=== PATIENT | female | born 1985 | race Caucasian/White ===

== ENCOUNTER → 2017-12-14 16:16 | Observation (INO) ==
[2017-12-14 12:49] LABS: Alanine Aminotransferase 7 Units/L (7-52); Aspartate Amino Transferase 14 Units/L (13-39); BUN/Creatinine Ratio 15 (6-26); Blood Urea Nitrogen 8 mg/dL (6-20); Lactate Dehydrogenase 141 Units/L (140-271); Uric Acid 3.3 mg/dL (2.3-7.6); eGFR For Non-African Americans > 60 (> 60)
[2017-12-14 12:55] LABS: Protein/Creatinine Ratio,Urine 0.13 mg/mg (0.00-0.20)
[2017-12-14 12:56] LABS: Amphetamine Screen,Urine Negative ng/mL (Cutoff=1000); Barbiturate Screen,Urine Negative ng/mL (Cutoff=200); Basophils % 0.3 %; Benzodiazepines Screen,Urine Negative ng/mL (Cutoff=200); Cannabinoid Screen,Urine Negative ng/mL (Cutoff = 50); Cocaine Screen,Urine Negative ng/mL (Cutoff= 300); Eosinophils # 0.1 K/mcL (0.0-0.6); Eosinophils % 0.7 %; Hematocrit 36.6 % (35.3-44.9); Hemoglobin 12.1 g/dL (11.5-15.4); Immature Granulocytes % 0.8 % (0-4); Lymphocytes # 1.7 K/mcL (0.6-4.6); Lymphocytes % 16.5 %; Mean Corpuscular HGB Conc 33.1 g/dL (31.6-35.5); Mean Corpuscular Hemoglobin 28.6 pg (28.0-33.3); Mean Corpuscular Volume 86.5 fL (83.0-100.0); Mean Platelet Volume 9.8 fL (9.4-12.4); Monocytes # 0.5 K/mcL (0.0-1.3); Monocytes % 4.9 %; Neutrophils # 7.8 K/mcL (1.6-8.9); Opiate Screen,Urine Negative ng/mL (Cutoff=300); Phencyclidine Screen,Urine Negative ng/mL (Cutoff=25); Platelet Count 270 K/mcL (140-400); Red Blood Count 4.23 M/mcL (3.82-4.97); Red Cell Distribution Width 12.8 % (11.5-14.5); Segmented Neutrophils % 76.8 %
--- NOTE | 2017-12-14 13:26 | OB/GYN Progress Note ---
Date of Encounter: 12/14/17 Time of Encounter: 13:20 - Assessment and Plan (1) 37 weeks gestation of Current Visit: Yes Status: Acute Admit to observation to rule out preeclampsia Continuous monitoring (2) headache in third trimester Current Visit: Yes Status: Acute Serial blood pressures Obtain PIH labs Nonstress test Pharmacological treatment of headache with Phenergan and Fioricet (3) NST (non-stress test) reactive Current Visit: No Status: Acute FHR 135 bpm, moderate variability, +15 x 15 accelerations, no decelerations. Subjective - Subjective Principal diagnosis: Visual disturbance in Interval history: Josh is a 32-year-old at 37 weeks and 3 days who presents today with complaint of visual disturbance not being able to see well out of one eye. She denies any high blood pressure during this . She began noticing visual disturbance this morning at 9 AM she then vomited twice, and headache started around 10:00. She took Tylenol at 10:15 with no relief of symptoms. Today she reports positive movement denies any vaginal bleeding or fluid leakage and is not feeling any contractions. Antepartum ROS: new complaints, movement normal, no loss of fluid, no vaginal bleeding, no contractions Objective - Vital Signs Vital Signs: Intake and Output 12/13/17 12/14/17 12/14/17 23:59 07:59 15:59 Other: Weight 106.7 kg Patient Weight 12/14/17 23:59 Weight 106.7 kg - Exam FHR: auscultation normal, category 1 FHR comments: FHR 135 bpm, moderate variability, +15 x 15 accelerations, no decelerations. Irregular contractions noted on monitor Abdomen: Present: normal appearance, soft, gravid - Labs Labs: Abnormal lab results Creatinine 0.53 mg/dL (0.60-1.20) L 12/14/17 12:11
--- NOTE | 2017-12-14 16:12 | Discharge Summary ---
Date of Encounter: 12/14/17 Time of Encounter: 16:21 - Discharge Diagnosis (1) 37 weeks gestation of Priority: Primary Status: Acute Comments: Admitted for observation for headache during Irregular contractions noted. Reactive NST. (2) headache in third trimester Priority: Secondary Status: Acute Comments: Headache pain improved after Fioricet and Phenergan. Sent home with prescription for Fioricet and Phenergan if needed for headache pain (3) NST (non-stress test) reactive Priority: Secondary Status: Acute Comments: FHR 130 bpm, moderate variability +15 x 15 accelerations, no decelerations. - Discharge Medications Prescriptions: Acetaminophen/Butalbital/Caffe [Fioricet] 1 each PO Q6HR #10 tablet Promethazine [Phenergan] 12.5 mg PO Q6HR #10 tablet Home Medications: Nexium 1 tab PO DAILY 10/11/15 [History] Caplet 1 tab PO DAILY 10/11/15 [History] Acetaminophen/Butalbital/Caffe [Fioricet] 1 each PO Q6HR #10 tablet 12/14/17 [Rx] Famotidine [Pepcid] 1 tab PO DAILY 12/14/17 [History] Promethazine [Phenergan] 12.5 mg PO Q6HR #10 tablet 12/14/17 [Rx] Allergies/Adverse Reactions: Allergy/AdvReac Type Severity Reaction Status Date / Time No Known Allergies Allergy Verified 12/14/17 12:12 Data Procedures and tests throughout hospitalization: Laboratory Tests 12/14/17 12/14/17 12/14/17 12:11 12:11 12:11 WBC 10.2 RBC 4.23 Hgb 12.1 Hct 36.6 MCV 86.5 MCH 28.6 MCHC 33.1 RDW 12.8 Plt Count 270 MPV 9.8 Immature Gran % 0.8 Seg Neutrophils % 76.8 Lymphocytes % 16.5 Monocytes % 4.9 Eosinophils % 0.7 Basophils % 0.3 Neutrophils # 7.8 Lymphocytes # 1.7 Monocytes # 0.5 Eosinophils # 0.1 Basophils # 0.0 BUN Creatinine Est GFR ( Amer) Est GFR (Non-Af Amer) BUN/Creatinine Ratio Uric Acid AST ALT Lactate Dehydrogenase Urine Creatinine 30 Protein/Creatinin Ratio 0.13 Urine Total Protein 4 Urine Opiates Screen Negative Ur Barbiturates Screen Negative Ur Phencyclidine Scrn Negative Ur Amphetamines Screen Negative U Benzodiazepines Scrn Negative Urine Cocaine Screen Negative U Marijuana (THC) Screen Negative Ur Drug Screen Interp See Below Hep Bs Antigen 12/14/17 12/14/17 12:11 12:17 WBC RBC Hgb Hct MCV MCH MCHC RDW Plt Count MPV Immature Gran % Seg Neutrophils % Lymphocytes % Monocytes % Eosinophils % Basophils % Neutrophils # Lymphocytes # Monocytes # Eosinophils # Basophils # BUN 8 Creatinine 0.53 L Est GFR ( Amer) > 60 Est GFR (Non-Af Amer) > 60 BUN/Creatinine Ratio 15 Uric Acid 3.3 AST 14 ALT 7 Lactate Dehydrogenase 141 Urine Creatinine Protein/Creatinin Ratio Urine Total Protein Urine Opiates Screen Ur Barbiturates Screen Ur Phencyclidine Scrn Ur Amphetamines Screen U Benzodiazepines Scrn Urine Cocaine Screen U Marijuana (THC) Screen Ur Drug Screen Interp Hep Bs Antigen Nonreactive Labs on day of discharge: Labs from last 24 hours 12/14/17 12/14/17 12/14/17 12:17 12:11 12:11 WBC RBC Hgb Hct MCV MCH MCHC RDW Plt Count MPV Immature Gran % Seg Neutrophils % Lymphocytes % Monocytes % Eosinophils % Basophils % Neutrophils # Lymphocytes # Monocytes # Eosinophils # Basophils # BUN 8 Creatinine 0.53 L Est GFR ( Amer) > 60 Est GFR (Non-Af Amer) > 60 BUN/Creatinine Ratio 15 Uric Acid 3.3 AST 14 ALT 7 Lactate Dehydrogenase 141 Urine Creatinine 30 Protein/Creatinin Ratio 0.13 Urine Total Protein 4 Urine Opiates Screen Ur Barbiturates Screen Ur Phencyclidine Scrn Ur Amphetamines Screen U Benzodiazepines Scrn Urine Cocaine Screen U Marijuana (THC) Screen Ur Drug Screen Interp Hep Bs Antigen Nonreactive 12/14/17 12/14/17 12:11 12:11 WBC 10.2 RBC 4.23 Hgb 12.1 Hct 36.6 MCV 86.5 MCH 28.6 MCHC 33.1 RDW 12.8 Plt Count 270 MPV 9.8 Immature Gran % 0.8 Seg Neutrophils % 76.8 Lymphocytes % 16.5 Monocytes % 4.9 Eosinophils % 0.7 Basophils % 0.3 Neutrophils # 7.8 Lymphocytes # 1.7 Monocytes # 0.5 Eosinophils # 0.1 Basophils # 0.0 BUN Creatinine Est GFR ( Amer) Est GFR (Non-Af Amer) BUN/Creatinine Ratio Uric Acid AST ALT Lactate Dehydrogenase Urine Creatinine Protein/Creatinin Ratio Urine Total Protein Urine Opiates Screen Negative Ur Barbiturates Screen Negative Ur Phencyclidine Scrn Negative Ur Amphetamines Screen Negative U Benzodiazepines Scrn Negative Urine Cocaine Screen Negative U Marijuana (THC) Screen Negative Ur Drug Screen Interp See Below Hep Bs Antigen Date of admission: 12/14/17 11:52 Discharging clinician: Christel Mi Anticipated date of discharge: 12/14/17 - Patient Status Disposition: Home, Self-Care Condition: Good Functional capacity at discharge: independent ambulation Overall status at discharge: patient is progressing back to baseline - Discharge Instructions Follow Up With: Swathi Plasencia MD [Partnered Physician] - - Diet and Activity Activity: resume usual activities as tolerated Diet: regular diet Hospital 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 PIH evaluation was completed. All labs returned normal, blood pressures within normal limits. Fioricet and Phenergan given for headache complaints with acceptable relief. Patient sent home in satisfactory condition with prescription for Fioricet and Phenergan if needed for headache pain. Time Attestation: Total time spent providing and/or coordinating discharge services: Time Spent: Less than 30 minutes Exam - Constitutional General appearance IM: A&O X 3, pleasant, no acute distress, answers questions appropriately - Cardiovascular Cardiovascular exam IM: Present: RRR, +S1, +S2 - Neurological Exam Neurological exam: alert, normal gait, oriented X3, reflexes normal - VTE Reasons for not Prescribing Prophylaxis: Treatment not Indicated - Low risk for VTE
[~2017-12-14 16:16] MED LIST: *HR* Promethazine 25 MG/ML VIAL IVP ONE; Acetaminophen/Butalbital/CaffeineTABLET PO ONE
== END | disposition home or self-care (01) ==
LOC: 1NENULAB
PROVIDERS: ADMIT Registered Nurse; ATTEND Registered Nurse

== ENCOUNTER 2017-12-27 05:56 | Inpatient (IN) ==
[2017-12-27] MEDS ORDERED: Epidural Premix (fent/bupiv) 110 ML EP ONE (05:59)
[2017-12-27] MEDS ORDERED: Lidocaine -MPF 2% 5 ML VIAL ONE ×2 (06:00→17:59)
[2017-12-27] MEDS ORDERED: EPHEDrine 50 MG/ML VIAL IVP PRN (06:05)
[2017-12-27] MEDS ORDERED: Ondansetron 4 MG/2 ML VIAL IVP PRN (06:12)
[2017-12-27] MEDS ORDERED: Naloxone 0.4 MG/ML INJ IVP PRN (06:12)
[2017-12-27] MEDS ORDERED: *HR* Nalbuphine 10 MG/ML AMPUL IVP PRN (06:12)
[2017-12-27] MEDS ORDERED: Lidocaine 1% 20 ML MDV ID PRN (06:12)
[2017-12-27] MEDS ORDERED: Famotidine 20 MG/2 ML VIAL IVP PRN (06:12)
[2017-12-27] MEDS ORDERED: Metoclopramide 10 MG/2 ML VIAL IVP PRN (06:12)
[2017-12-27] MEDS ORDERED: Epidural Premix (fent/bupiv) 110 ML EP SCH (06:15)
[2017-12-27] MEDS ORDERED: miSOPROStol 100 MCG TABLET PO PRN (06:26)
[2017-12-27] MEDS ORDERED: Penicillin G Potassium 5,000,000 UNIT in 0.9 % Sodium Chloride Mini Bag 100 ML IVPB ONE (06:29)
--- NOTE | 2017-12-27 06:29 | Anesthesia Evaluation PreOp ---
Date of Encounter: 12/27/17 Time of Encounter: 06:22 - Past History Planned Operation: vaginal del, Cardiac History: Denies any Significant Hx Pulmonary History: Denies Any Significant HX AIR BRAKE RIGGER History: Denies Any Significant HX Other Medical History: GERD, Other (previous stat surgery d/t uterine prolapse/inversion (1 liter loss at that time)) Anesthesia History: No Prior Anesthetic Complications, Past Anesthesia Alcohol Use: none Drug use: none Medications and Allergies Nexium 1 tab PO DAILY 10/11/15 [History] Caplet 1 tab PO DAILY 10/11/15 [History] Acetaminophen/Butalbital/Caffe [Fioricet] 1 each PO Q6HR #10 tablet 12/14/17 [Rx] Famotidine [Pepcid] 1 tab PO DAILY 12/14/17 [History] Promethazine [Phenergan] 12.5 mg PO Q6HR #10 tablet 12/14/17 [Rx] Allergy/AdvReac Type Severity Reaction Status Date / Time No Known Allergies Allergy Verified 12/27/17 06:13 Anesthesia Exam - HEENT Pupil (Motor): Pupils equal Mallampati: III Teeth: Normal Oral Opening: Greater than 3 - AIR BRAKE RIGGER LOC: Oriented AIR BRAKE RIGGER Motor: Normal RUE, Normal LUE, Normal RLE, Normal LLE, Normal Face AIR BRAKE RIGGER Sensory: Normal: RUE, LUE, RLE, LLE, Face - Cardiac Rhythm: Regular Murmur: None - Pulmonary Breath Sounds: bilateral Clear Respiratory Effort: Symmetrical Anesthesia Assess/Plan ASA Score: 2 Level of consciousness: Cooperative, Oriented Anesthetic Plan: General, Spinal, Epidural Monitoring Plan: Standard Monitors Recovery Plan: PACU
[2017-12-27 06:39] LABS: Basophils % 0.3 %; Eosinophils # 0.1 K/mcL (0.0-0.6); Eosinophils % 0.9 %; Hematocrit 36.9 % (35.3-44.9); Hemoglobin 11.9 g/dL (11.5-15.4); Immature Granulocytes % 0.7 % (0-4); Lymphocytes # 2.9 K/mcL (0.6-4.6); Lymphocytes % 26.9 %; Mean Corpuscular HGB Conc 32.2 g/dL (31.6-35.5); Mean Corpuscular Hemoglobin 27.9 pg (28.0-33.3); Mean Corpuscular Volume 86.6 fL (83.0-100.0); Mean Platelet Volume 9.9 fL (9.4-12.4); Monocytes # 0.7 K/mcL (0.0-1.3); Monocytes % 6.5 %; Neutrophils # 7.1 K/mcL (1.6-8.9); Platelet Count 285 K/mcL (140-400); Red Blood Count 4.26 M/mcL (3.82-4.97); Red Cell Distribution Width 13.1 % (11.5-14.5); Segmented Neutrophils % 64.7 %
[2017-12-27] MEDS ORDERED: Famotidine 20 MG/2 ML VIAL IVP ONE (06:52)
[2017-12-27] MEDS ORDERED: D5% in 0.45% NACL 1,000 ML IVC ONE (06:57)
--- NOTE | 2017-12-27 08:38 | History & Physical Report ---
Date of Encounter: 12/27/17 Time of Encounter: 08:31 24 Hour HP Update - Instructions Instructions: If the History and Physical is less than 30 days old and was completed prior to A.M. admission and or procedure and has NOT been updated on calendar day of procedure please complete this update prior to performing procedure. - Update Patient reports changes in Medical Condition: No Changes in examination, assessment, or condition: Yes Changes in Medication: No Preop tests/diagnostics Reviewed: Yes Surgery Remains Indicated: Yes Consent for Planned Operative Procedure(s) Verified: Yes Review of Patient reveals the following changes:: The patient was spontaneous emesis on arrival after Pepcid - Pre-Operative Checklist Preoperative Checklist Indicated: No Is VTE Prophylaxis Indicated?: NO
[2017-12-27] MEDS ORDERED: Ringers Solution, Lactated 1,000 ML ONE ×2 (08:54→19:17)
--- NOTE | 2017-12-27 09:10 | Anesthesia Procedures ---
Date of Encounter: 12/27/17 Time of Encounter: 08:23 Procedures: Anesthesia - Epidural/Spinal Patient ID/Chart reviewed: Yes Patient examined: Yes OB Eval: Gestational age: term OB Eval: : 2 OB Eval: Hx Para: 1 OB Eval: Contractions: Non-stressed pattern Consent Obtained: Yes Supplemental Oxygen: None/Room Air Site Prep: Aseptic Technique, Sterile prep and drape, 0.5% Chlorhexidine/Alcohol Patient position: upright Local Anesthetic: Lidocaine 1% Amount of Local Anesthetic used: 2 Touhy Needle Gauge: 18 Touhy Needle Depth (cm): 7 Catheter Depth at Skin (cm): 11 Test Dose (1.5% Lido + Epi): Volume given (mls): 3 Test Dose Result: Negative Loading Dose: Other: 8ml from solution Loading Dose Administered: Thru Catheter Infusion Med: 0.125% Bupivacaine w/ 2 mcg/ml Fentanyl Infusion Rate (mls/hr): 5 (demand of 7 Q 10min, decision for lower basal d/t pt not in acute phase labor ) Catheter Secured in Place: Tegaderm, Tape Interspace Used: L3-L4 Loss of Resistance (THERESA): Yes (saline) Blood: No CSF: No Paresthesia: No Procedure: vss though out procedure, FHR stable per RN's
[2017-12-27] MEDS: Penicillin G Potassium 2,500,000 UNIT in 0.9 % Sodium Chloride 100 ML IVPB SCH ×3 (11:33→19:26)
[2017-12-27] MEDS ORDERED: Oxytocin 20 units/ LR 1000 mL 20 UNIT/1,000 ML BAG IVC SCH (12:00)
[2017-12-27] MEDS ORDERED: Oxytocin 20 units/ LR 1000 mL 20 UNIT/1,000 ML BAG IVC ONE (12:12)
[2017-12-27] MEDS ORDERED: Bupivacaine-MPF 0.25% 10 ML VIAL ONE ×3 (14:03→17:59)
[2017-12-27] MEDS ORDERED: *HR* FentaNYL (PF) 100 MCG/2 ML VIAL ONE ×2 (14:03→22:10)
--- NOTE | 2017-12-27 15:02 | Anesthesia Progress Note ---
Date of Encounter: 12/27/17 Time of Encounter: 14:05 Anesthesia Note - Note Note: 12/27/17 15:00 called to LDR 12 for c/o pain with contractions, mostly on left side and very low. States experienced the same type of pain with previous epidural/delivery.States has push bolus button without any relief. Rate on epidural at 5ml per hour. Dosed epidural with 8ml 0.25% bupivacaine and 100 mcg fentanyl in 3 divided doses. VSS and FHTs stable throughout. Increased rate on epidural infusion to 14ml/hour.
--- NOTE | 2017-12-27 16:07 | OB Labor Progress Note ---
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 She is feeling better. - Vital Signs Vital Signs: Afebrile, vital signs stable - Cervix Cervix: 5/100/-1 with forebag, vertex - Heart Tones Heart Tones: 130s baseline, CAT 1 - [place]: Unable to monitor, patient on left side on 4 milliunits of Pitocin - Interventions Interventions: 39 week IUP for induction of labor was suspected macrosomia. - Plan Plan: Amniotomy with large amount of clear fluid seen. IUPC placed. Continue i nduction of labor
--- NOTE | 2017-12-27 18:33 | Anesthesia Progress Note ---
Date of Encounter: 12/27/17 Time of Encounter: 16:27 Anesthesia Note - Note Note: 12/27/17 18:32 called to LDR 12 for continued pain to lower left abdomen and hip. Was relieved some by previous redose. Epidural has not migrated. Dosed with 10ml 0.25% bupivacaine in 3 doses. VSS and FHTs stable throughout.
--- NOTE | 2017-12-27 19:17 | Anesthesia Procedures ---
Date of Encounter: 12/27/17 Time of Encounter: 18:41 Procedures: Anesthesia - Epidural/Spinal Patient ID/Chart reviewed: Yes Patient examined: Yes OB Eval: Gestational age: term OB Eval: : 2 OB Eval: Hx Para: 1 OB Eval: Contractions: Non-stressed pattern Consent Obtained: Yes Supplemental Oxygen: None/Room Air Site Prep: Aseptic Technique, Sterile prep and drape, 0.5% Chlorhexidine/Alcohol Patient position: upright Local Anesthetic: Lidocaine 1% Amount of Local Anesthetic used: 2 Touhy Needle Gauge: 18 Touhy Needle Depth (cm): 7 Catheter Depth at Skin (cm): 11 Test Dose (1.5% Lido + Epi): Volume given (mls): 4 Test Dose Result: Negative Loading Dose: Other: 0 Infusion Med: 0.125% Bupivacaine w/ 2 mcg/ml Fentanyl Infusion Rate (mls/hr): [address]: Tegaderm, Tape Interspace Used: L3-L4 Loss of Resistance (THERESA): Yes (saline) Blood: No CSF: Yes (CSE, d/t HOT SPOT same as last time with minimal relief. ) Paresthesia: No Procedure: vss though out procedure, FHR stable per RN's. one interspace above attempted unsuccessful moved skin and moved up 2 interspaces from original site THERESA as listed 27g pencil point with 0.6ml isobaric 0.25% bup. and threaded cath. then neg test dose. then placed epidural GTT. at 15ml. aseptic though out.
[2017-12-27] MEDS ORDERED: Lidocaine/EPI 1:200k 2% PF 20 ML VIAL ONE (22:10)
--- NOTE | 2017-12-27 22:22 | Anesthesia Progress Note ---
Date of Encounter: 12/27/17 Time of Encounter: 22:16 Anesthesia Note - Note Note: 12/27/17 22:21 bolus with 5ml lido 2% with epi and 100mcg Fentanyl. VSS, FHR per RN's
--- NOTE | 2017-12-27 22:23 | OB Labor Progress Note ---
Date of Encounter: 12/27/17 Time of Encounter: 22:21 Labor Progress Note - Subjective Subjective: The patient has had some relief from hotspots with boluses per anesthesia. She is currently shaking after the epidural. She feels a lot of rectal pressure - Vital Signs Vital Signs: Afebrile, vital signs stable - Cervix Cervix: Rim, 0 station - Heart Tones Heart Tones: 150s baseline, CAT 2 with variable decells. - [place]: Contractions every 2-4 minutes, 30-50 mmHg on Pitocin - Interventions Interventions: 39 week IUP for induction of labor with suspected macrosomia. Patient has been at 9 cm with a slight increase in descensus for over an hour. - Plan Plan: Continue induction with close observation for tolerance and adequacy of contractions and cervical change.
[2017-12-27] MEDS ORDERED: Scopolamine Patch 1.5 MG PATCH.TD72 TD ONE (22:52)
--- NOTE | 2017-12-28 01:03 | OB/GYN Procedure Note ---
Delivery - Delivery Date: 12/28/17 Provider: Swathi Plasencia Intrapartum events: none Delivery induction: misoprostol Delivery augmentation: rupture of membranes, pitocin Delivery monitor: external FHT, external uterine, internal uterine Anesthesia: epidural Quantitated Blood Loss: 100 - (s) Infant A Infant Delivery Date: 12/28/17 Delivery Time: 00:37 Presentation: vertex Position: JAGJIT Route of delivery: Gender: Male Viability: Viable Pounds: 9 Ounces: 0 Weight Gram: 4.08 kg at 1 minute: 8 at 5 mins: 9 Shoulder Dystocia: not encountered Placenta: spontaneous Cord: 3 umbilical vessels - Repair Episiotomy: none Laceration Description: None - Complications Delivery complications: none Delivery comments: The patient was complete and pushing with epidural anesthesia with a spontaneous vaginal delivery in the JAGJIT position of a vigorous male infant weighing 9 lbs.0 oz. with Apgars of 8 at 1 minute and 9 at 5 minutes. Infant was placed on the maternal abdomen. The cord was clamped and cut after pulsations ceased. Cord blood obtained. The placenta was delivered spontaneous and intact. There were no lacerations on visual inspection. Estimated blood loss 100 mL, complications none. - Disposition Mom disposition: stable in LDR disposition: stable in LDR
[2017-12-28] MEDS ORDERED: Oxytocin 20 units/ LR 1000 mL 20 UNIT/1,000 ML BAG IVC SCH (03:02)
[2017-12-28] MEDS ORDERED: Acetaminophen 325 MG TABLET PO PRN (03:02)
[2017-12-28] MEDS: Prenatal Vit/FA 1 EACH TABLET PO SCH (10:05)
[2017-12-28] MEDS: Ibuprofen 600 MG TABLET PO SCH ×3 (10:06→21:59)
[2017-12-29 08:27] VITALS: BP 114/76
[2017-12-29] MEDS: Ibuprofen 600 MG TABLET PO SCH (08:41)
[2017-12-29] MEDS: Prenatal Vit/FA 1 EACH TABLET PO SCH (08:41)
--- NOTE | 2017-12-29 09:40 | Discharge Summary ---
Date of Encounter: 12/29/17 Time of Encounter: 09:38 - Discharge Diagnosis (1) Breast feeding status of mother Priority: Secondary Status: Acute Comments: support prn (2) Status post vaginal delivery Priority: Primary Status: Acute Comments: Continue routine care discharge home today follow up with Dr. Plasencia in 4-6 weeks - Discharge Medications Home Medications: Ibuprofen [Motrin] 600 mg PO Q6HR tablet 12/29/17 [Rx] Vit/FA 1 each PO DAILY tablet 12/29/17 [Rx] Allergies/Adverse Reactions: Allergy/AdvReac Type Severity Reaction Status Date / Time No Known Allergies Allergy Verified 12/27/17 06:13 Data Procedures and tests throughout hospitalization: Laboratory Tests 12/27/17 06:12 WBC 10.9 RBC 4.26 Hgb 11.9 Hct 36.9 MCV 86.6 MCH 27.9 L MCHC 32.2 RDW 13.1 Plt Count 285 MPV 9.9 Immature Gran % 0.7 Seg Neutrophils % 64.7 Lymphocytes % 26.9 Monocytes % 6.5 Eosinophils % 0.9 Basophils % 0.3 Neutrophils # 7.1 Lymphocytes # 2.9 Monocytes # 0.7 Eosinophils # 0.1 Basophils # 0.0 Date of admission: 12/27/17 05:56 Primary care physician: Arley Staley MD Consults: 12/28/17 03:02 Consult to Chair [CONS] Routine Comment: Vaginal delivery, consult needed Discharging clinician: Ellie Torres Anticipated date of discharge: 12/29/17 - Patient Status Disposition: Home, Self-Care Condition: Good Functional capacity at discharge: independent ambulation - Discharge Instructions Follow Up With: Arley Staley MD [Primary Care Provider] - Swathi Plasencia MD [Partnered Physician] - - Diet and Activity Activity: increase activity as tolerated Diet: regular diet Hospital Course Reason for admission: induction of labor Delivery: Episiotomy: none Laceration: none Other procedures: none complications: none baby: male (breast feeding) Time Attestation: Total time spent providing and/or coordinating discharge services: Time Spent: Less than 30 minutes Exam - Constitutional Vitals: Temp Pulse Resp BP Pulse Ox 97.4 F L 73 16 114/76 97 12/29/17 08:25 12/29/17 08:25 12/29/17 08:25 12/29/17 08:25 12/29/17 08:25 General appearance IM: A&O X 3, pleasant, answers questions appropriately - Respiratory Respiratory exam: Present: CTAB - Cardiovascular Cardiovascular exam IM: Present: RRR, +S1, +S2 - GI/Abdominal GI/Abdominal exam IM: normal bowel sounds - Uterine Tone: Firm Uterus Position: At Umbilicus, Midline - Extremities Exam Extremities exam IM: Present: full ROM, normal capillary refill, normal inspection - Neurological Exam Neurological exam: alert, oriented X3, reflexes normal - Other Additional findings: light lochia without blood clots
== END 2017-12-29 11:52 | disposition home or self-care (01) | DRG 807 ==
LOC: 1NENULAB 05:56 → 1NENUOBS 12-28 03:01
PROVIDERS: ADMIT Obstetrics & Gynecology; ATTEND Obstetrics & Gynecology

== ENCOUNTER 2021-05-02 23:00 | Inpatient (IN) ==
[~2021-05-02 23:00] MED LIST changes: +*HR* Nalbuphine 10 MG/ML AMPUL IV PRN; -*HR* Promethazine 25 MG/ML VIAL IVP ONE; -Acetaminophen/Butalbital/CaffeineTABLET PO ONE; +Azithromycin 500 MG in 0.9 % Sodium Chloride 250 ML IVPB PRN; +Famotidine 20 MG/2 ML VIAL IVP PRN; +Lidocaine 1% 20 ML MDV INFILT PRN; +Metoclopramide 10 MG/2 ML VIAL IVP PRN; +Naloxone 0.4 MG/ML INJ IVP PRN; +Ringers Solution, Lactated 1,000 ML IVC SCH
[2021-05-03 00:27] LABS: Basophils # 0.1 K/mcL (0.0-0.2); Basophils % 0.4 %; Eosinophils # 0.1 K/mcL (0.0-0.6); Hematocrit 35.2 % (35.3-44.9); Immature Granulocytes % 0.7 % (0-4); Lymphocytes # 2.5 K/mcL (0.6-4.6); Lymphocytes % 21.9 %; Mean Corpuscular HGB Conc 34.1 g/dL (31.6-35.5); Mean Corpuscular Hemoglobin 30.2 pg (28.0-33.3); Mean Corpuscular Volume 88.7 fL (83.0-100.0); Mean Platelet Volume 10.1 fL (9.4-12.4); Monocytes # 0.7 K/mcL (0.0-1.3); Monocytes % 6.5 %; Neutrophils # 7.9 K/mcL (1.6-8.9); Platelet Count 272 K/mcL (140-400); Red Blood Count 3.97 M/mcL (3.82-4.97); Red Cell Distribution Width 13.3 % (11.5-14.5); Segmented Neutrophils % 69.5 %; White Blood Count 11.3 K/mcL (4.3-11.1)
[2021-05-03 00:36] LABS: Amphetamine Screen,Urine Negative ng/mL (Cutoff=1000); Barbiturate Screen,Urine Negative ng/mL (Cutoff=200); Benzodiazepines Screen,Urine Negative ng/mL (Cutoff=200); Cannabinoid Screen,Urine Negative ng/mL (Cutoff = 50); Cocaine Screen,Urine Negative ng/mL (Cutoff= 300); Opiate Screen,Urine Negative ng/mL (Cutoff=300); Phencyclidine Screen,Urine Negative ng/mL (Cutoff=25)
[2021-05-03] MEDS ORDERED: Oxytocin 30 UNIT/503 ML BAG IVC SCH ×2 (02:45→13:36)
[2021-05-03] MEDS ORDERED: Epidural Premix (fent/bupiv) 110 ML EP ONE (03:35)
[2021-05-03] MEDS ORDERED: EPHEDrine 50 MG/ML VIAL IVP PRN (04:01)
[2021-05-03] MEDS ORDERED: Epidural Premix (fent/bupiv) 110 ML EP SCH (04:15)
[2021-05-03] MEDS: Ondansetron 4 MG/2 ML VIAL IVP PRN ×2 (06:36→11:24)
[2021-05-03] MEDS ORDERED: Ibuprofen 600 MG TABLET PO ONE (10:58)
[2021-05-03] MEDS ORDERED: Ondansetron ODT 4 MG TAB.RAPDIS SL PRN (13:36)
[2021-05-03] MEDS ORDERED: Benzocaine/Menthol 56 GM AEROSOL SPRAY TP PRN (13:36)
[2021-05-03] MEDS ORDERED: Lanolin 7 G OINT...G. TP PRN (13:36)
[2021-05-03] MEDS: Acetaminophen 325 MG TABLET PO SCH ×2 (13:59→20:28)
[2021-05-03] MEDS: Ibuprofen 600 MG TABLET PO SCH ×2 (17:22→23:24)
[2021-05-04] MEDS: Acetaminophen 325 MG TABLET PO SCH (03:49)
[2021-05-04 04:08] LABS: Basophils % 0.3 %; Eosinophils # 0.1 K/mcL (0.0-0.6); Eosinophils % 0.6 %; Hematocrit 31.6 % (35.3-44.9); Hemoglobin 10.5 g/dL (11.5-15.4); Immature Granulocytes % 0.4 % (0-4); Lymphocytes # 2.8 K/mcL (0.6-4.6); Lymphocytes % 17.9 %; Mean Corpuscular HGB Conc 33.2 g/dL (31.6-35.5); Mean Corpuscular Hemoglobin 29.1 pg (28.0-33.3); Mean Corpuscular Volume 87.5 fL (83.0-100.0); Monocytes # 0.7 K/mcL (0.0-1.3); Monocytes % 4.4 %; Platelet Count 221 K/mcL (140-400); Red Blood Count 3.61 M/mcL (3.82-4.97); Red Cell Distribution Width 13.7 % (11.5-14.5); Segmented Neutrophils % 76.4 %; White Blood Count 15.7 K/mcL (4.3-11.1)
[2021-05-04 07:44] VITALS: BP 114/70; PULSE 91; TEMP 98.3; O2SAT 97
[2021-05-04] MEDS ORDERED: Prenatal Vit/FA 1 EACH TABLET PO SCH (09:00)
[2021-05-04] MEDS: Ibuprofen 600 MG TABLET PO SCH (09:27)
== END 2021-05-04 14:03 | disposition home or self-care (01) | DRG 806 ==
LOC: 1NENULAB → 1NENUOBS 05-03 13:21
PROVIDERS: ADMIT Obstetrics & Gynecology; ATTEND Obstetrics & Gynecology